=== PATIENT | male | born 1965 | race Caucasian/White ===

== ENCOUNTER 2018-06-13 09:05 | Day surgery (SDC) | payer OTHER ==
[2018-06-13] MEDS ORDERED: MIDAZOLAM 1 MG/ML 2 ML INJ (10:51)
[2018-06-13] MEDS ORDERED: PROPOFOL 20 ML (10:51)
[2018-06-13] MEDS ORDERED: LIDOCAINE 2% (SDV) 5 ML INJ (10:51)
== END 2018-06-13 17:50 | disposition home or self-care (01) ==
LOC: GIL 09:05
DX: Z12.11 Encounter for screening for malignant neoplasm of colon (principal); K21.0 Gastro-esophageal reflux disease with esophagitis; K44.9 Diaphragmatic hernia without obstruction or gangrene; K29.70 Gastritis, unspecified, without bleeding; D12.6 Benign neoplasm of colon, unspecified; K64.8 Other hemorrhoids; J45.909 Unspecified asthma, uncomplicated
CPT/HCPCS: 43239; 88305